=== PATIENT | female | born 1995 | race Caucasian/White ===

== ENCOUNTER 2016-10-05 15:47 | Emergency (ER) | payer SELFPAY ==
[2016-10-05 16:38] LABS: Bilirubin Negative (Negative); Blood, Urine Negative (Negative); Clarity Slightly Cloudy (Clear); Glucose, Urine (Dipstick) Negative (Negative); Leukocyte Negative (Negative); Nitrite Negative (Negative); Protein, Urine (Dipstick) Negative (Neg-Trace); Specific Gravity, Urine 1.025 (1.005-1.030); Urobilinogen 0.2 mg/dL (0.2-1.0)
[2016-10-05 16:39] LABS: Pregnancy Test - Urine (BHCG) NEGATIVE (NEGATIVE); Pregu Control Background? CLEAR/WHITE (CLR/WHITE); Pregu Control Bar Appear? YES (CONTROL BAR); Specific Gravity 1.025 (1.002-1.036)
[2016-10-05] MEDS ORDERED: HYDROcodone/Acetaminophen 10/325 mg Tablet ONE (16:59)
[2016-10-05] MEDS ORDERED: Azithromycin 250 MG TAB ONE (16:59)
[2016-10-05] MEDS ORDERED: Naproxen 500 MG TAB ONE (16:59)
== END 2016-10-05 17:04 | disposition home or self-care (01) ==
LOC: MADERS 15:47
DX: J02.9 Acute pharyngitis, unspecified (principal); J45.909 Unspecified asthma, uncomplicated; F41.9 Anxiety disorder, unspecified; F90.9 Attention-deficit hyperactivity disorder, unspecified type; F17.210 Nicotine dependence, cigarettes, uncomplicated
CPT/HCPCS: 81003; 81025; 87086; 99283

== ENCOUNTER 2016-10-26 11:33 | Emergency (ER) | payer BC, SELFPAY | END 2016-10-26 12:15 | disposition home or self-care (01) | LOC: MADERS 11:33 | DX: R68.84 Jaw pain (principal); J45.909 Unspecified asthma, uncomplicated; F90.9 Attention-deficit hyperactivity disorder, unspecified type ==

== ENCOUNTER 2017-01-08 17:09 | Emergency (ER) | payer BC ==
[2017-01-08] MEDS ORDERED: Ketorolac Tromethamine 60 MG/2 ML VIAL ONE (17:38)
[2017-01-08 17:47] LABS: #Eosinphils 0.3 thou/uL (0.0-0.7); #Lymphocytes 2.4 thou/uL (1.20-3.40); #Monocytes 0.6 thou/uL (0.11-0.59); #Neutrophils 6.4 thou/uL (1.40-6.50); %Basophils 0.5 % (0.0-1.0); %Eosinophils 3.4 % (0.0-10.0); %Lymphocytes 24.3 % (28.0-48.0); %Monocytes 6.4 % (0.0-4.0); %Neutrophils 65.4 % (31.0-61.0); Hemoglobin 13.2 g/dL (12.0-16.0); Mean Corpuscular HGB CONC 33.2 g/dL (32.0-36.0); Mean Corpuscular Hemoglobin 30.1 pg (25.0-35.0); Mean Corpuscular Volume 90.8 fl (77.0-87.0); Platelet Count 208 thou/uL (130-400); RBC Distribution Width 12.7 % (11.5-14.5); Red Blood Cell (RBC) Count 4.39 mill/uL (4.00-5.20); White Blood Cell (WBC) Count 9.7 thou/uL (4.8-10.8)
[2017-01-08 18:01] LABS: Bilirubin Negative (Negative); Blood, Urine Negative (Negative); Clarity Clear (Clear); Glucose, Urine (Dipstick) Negative (Negative); Leukocyte Negative (Negative); Nitrite Negative (Negative); Protein, Urine (Dipstick) Negative (Neg-Trace); Specific Gravity, Urine 1.025 (1.005-1.030); Urobilinogen 0.2 mg/dL (0.2-1.0)
[2017-01-08 18:02] LABS: Anion Gap 12 mmol/L (10-20); BUN (Urea Nitrogen) 9 mg/dL (7.0-18.7); Calc. Creatinine Clearance 0 mL/min (70-130); Carbon Dioxide 23 mmol/L (22-29); Chloride 109 mmol/L (98-107); Estimated GFR-MDRD Greater than 90; Glucose 93 mg/dL (70-105); Potassium 4.7 mmol/L (3.5-5.1); Sodium 139 mmol/L (136-145)
[2017-01-08 18:05] LABS: Pregnancy Test - Urine (BHCG) Negative (Negative); Pregu Control Background? CLEAR/WHITE (CLR/WHITE); Pregu Control Bar Appear? YES (CONTROL BAR); Specific Gravity 1.025 (1.002-1.036)
== END 2017-01-08 18:10 | disposition home or self-care (01) ==
LOC: MADERS 17:09
DX: N94.6 Dysmenorrhea, unspecified (principal); J45.909 Unspecified asthma, uncomplicated; F41.9 Anxiety disorder, unspecified; F90.9 Attention-deficit hyperactivity disorder, unspecified type; F17.290 Nicotine dependence, other tobacco product, uncomplicated
CPT/HCPCS: 36415; 80048; 81003; 81025; 85025; 96372; J1885

== ENCOUNTER 2017-04-06 15:56 | Emergency (ER) | payer BC ==
[2017-04-06] MEDS ORDERED: Naproxen 500 MG TAB ONE (17:18)
[2017-04-06] MEDS ORDERED: HYDROcodone/Acetaminophen 10/325 mg Tablet ONE (17:18)
--- NOTE | 2017-04-06 18:50 | RAD ---
EXAM: THREE VIEWS LEFT ANKLE 04/06/17 HISTORY: Fall. Pain. COMPARISON: None. FINDINGS: Joint spaces are preserved. No fracture or malalignment. No significant soft tissue swelling. IMPRESSION: Unremarkable three views left ankle. POS: [facility]
== END 2017-04-06 17:28 | disposition home or self-care (01) ==
LOC: MADERS 15:56
DX: S93.402A Sprain of unspecified ligament of left ankle, initial encounter (principal); E66.9 Obesity, unspecified; J45.909 Unspecified asthma, uncomplicated; F90.9 Attention-deficit hyperactivity disorder, unspecified type; F41.9 Anxiety disorder, unspecified; F17.210 Nicotine dependence, cigarettes, uncomplicated; X50.1XXA Overexertion from prolonged static or awkward postures, initial encounter

== ENCOUNTER 2018-11-03 19:59 | Emergency (ER) | payer BC, SELFPAY | END 2018-11-03 20:25 | disposition home or self-care (01) | LOC: MADERS 19:59 | DX: R06.00 Dyspnea, unspecified (principal) | CPT/HCPCS: 99283 ==

== ENCOUNTER 2019-03-11 09:52 | Emergency (ER) | payer SELFPAY | END 2019-03-11 10:35 | disposition home or self-care (01) | LOC: MADERS 09:52 | DX: M54.5 Low back pain (principal); F17.210 Nicotine dependence, cigarettes, uncomplicated | CPT/HCPCS: 99281 ==